=== PATIENT | female | born 1970 | race Caucasian/White ===

== ENCOUNTER 2017-03-18 14:47 | Emergency (ER) | payer SELFPAY ==
[~2017-03-18] VITALS: Ht 149.9 cm; Wt 94.0 kg
[~2017-03-18 14:47] MED LIST: MACR100C PO
[2017-03-18 14:51] VITALS: BP 151/107; PULSE 83; RESP 16; TEMP 98.3; O2SAT 98
[2017-03-18] MEDS ORDERED: OMEP20TA PO (15:08)
[2017-03-18] MEDS ORDERED: IBUPROFEN 600 MG TAB PO ONE (15:45)
[2017-03-18] MEDS ORDERED: ORPHENADRINE INJ 60 MG/2 ML AMP IM ONE (15:45)
[2017-03-18] MEDS ORDERED: IBUP-232 PO (15:49)
--- NOTE | 2017-03-18 15:49 | PD ---
HPI Chief Complaint: Pain: Acute or Chronic Time Seen by Provider: 15:43 Travel History International Travel<30 days: No Contact w/Intl Traveler<30days: No Traveled to known affect area: No History of Present Illness HPI 46-year-old female presents to the emergency room for evaluation of right groin pain that started last night. Patient states pain started as she was pulling herself up off the floor. Localized to the right groin with radiation posteriorly and down the anterior leg. She took ibuprofen without significant relief in symptoms. Pain is worsened with stretching, standing up straight, and range of motion of the right lower extremity. Patient denies paresthesias. Denies chronic medical conditions or daily medications. Denies nausea, vomiting, diarrhea, or difficulty with bowel movements. PFSH Past Medical History Hx Anticoagulant Therapy: No Cancer: Yes ("precancerous cells removed from cervix") Diabetes: No Diminished Hearing: No GERD: Yes Headaches: Yes Medical other: Yes (PRECANCER CELLS ON OVERIES) Tetanus Vaccination: < 5 Years Influenza Vaccination: No ?: Not : 5 Para: 3 Miscarriage: 2 Tubal Ligation: Yes Social History Alcohol Use: No Tobacco Use: No Substance Use: No Allergies-Medications (Allergen,Severity, Reaction): Coded Allergies: No Known Allergies (Unverified , 03/18/17) Reported Meds & Prescriptions Reported Meds & Active Scripts Active Reported Omeprazole 20 Mg Tab 20 Mg PO DAILY Review of Systems Except as stated in HPI: all other systems reviewed are Neg Physical Exam Narrative GENERAL: Well-nourished, morbidly obese female in no acute distress. Afebrile. Ambulatory. SKIN: Focused skin assessment warm/dry. No erythema or ecchymosis. HEAD: Normocephalic. EYES: No scleral icterus. No injection or drainage. NECK: Supple, trachea midline. No JVD or lymphadenopathy. CARDIOVASCULAR: Regular rate and rhythm without murmurs, gallops, or rubs. RESPIRATORY: Breath sounds equal bilaterally. No accessory muscle use. GASTROINTESTINAL: Abdomen soft, non-tender, nondistended. No masses. MUSCULOSKELETAL: 2+ dorsalis pedis pulse in the right. Full range of motion of the right hip. Mild tenderness to palpation of the right anterior groin. Data Data Last Documented VS Vital Signs Date Time Temp Pulse Resp B/P Pulse Ox O2 Delivery O2 Flow Rate FiO2 03/18/17 14:51 98.3 83 16 151/107 98 Orders Ibuprofen (Motrin) (03/18/17 15:45) Orphenadrine Inj (Norflex Inj) (03/18/17 15:45) [facility] Medical Decision Making Medical Screen Exam Complete: Yes Emergency Medical Condition: Yes Medical Record Reviewed: Yes Differential Diagnosis Sprain, hernia, muscle spasm, strain Narrative Course 46-year-old female presents to the emergency room for evaluation of right anterior groin pain that started last night. Pain started after patient pulled herself up off the ground. Physical exam reveals minimal tenderness to palpation of the right groin. Right lower extremity is neurovascularly intact. Full range of motion. No masses or hernias appreciated. This is groin strain. Patient given Norflex in the emergency room and discharged with prescription for ibuprofen. Told to follow-up with a PCP or return for worsening symptoms. She understands and agrees to plan. Diagnosis Primary Impression: Strain of right inguinal muscle Qualified Code: S39.013A - Strain of right inguinal muscle, initial encounter Referrals: Primary Care Physician Patient Instructions: General Instructions, Groin Strain (ED) Departure Forms: Tests/Procedures, Work Release Special Instructions: Light duty until 03/20/2017 Additional Instructions: Rest and drink plenty of fluids. Take ibuprofen with food as directed, as needed for pain. Apply ice to the affected area for 20 minutes at a time, as needed for pain and swelling. Follow-up with a primary care physician. Return to the emergency room for worsening symptoms. Med/Other Pt SpecificInfo: Prescription(s) given Disposition: 01 DISCHARGE HOME Condition: Stable Mehnaz Rahman Mar 18, 2017 15:49
== END 2017-03-18 16:03 | disposition home or self-care (01) ==
LOC: PHEFT 14:47
DX: S39.013A Strain of muscle, fascia and tendon of pelvis, initial encounter (principal); X50.9XXA Other and unspecified overexertion or strenuous movements or postures, initial encounter
CPT/HCPCS: 96372; 99284; J2360

== ENCOUNTER 2017-09-18 10:17 | Emergency (ER) | payer SELFPAY ==
[~2017-09-18] VITALS: Ht 149.9 cm; Wt 94.5 kg
[~2017-09-18 10:17] MED LIST changes: +IBUP-232 PO; -MACR100C PO; +OMEP20TA93 PO
[2017-09-18 10:34] VITALS: BP 145/90; PULSE 72; RESP 16; TEMP 98.6; O2SAT 99
[2017-09-18] MEDS ORDERED: MULT1TAB46 (10:45)
[2017-09-18] MEDS ORDERED: CEPH-460 PO (11:11)
--- NOTE | 2017-09-18 11:12 | PD ---
HPI Chief Complaint: Skin Problem Time Seen by Provider: 11:07 Travel History International Travel<30 days: No Contact w/Intl Traveler<30days: No Traveled to known affect area: No History of Present Illness HPI 47y female presents to emergency department complaining of a inflamed skin tag mole on the right axilla for less than 1 week. Patient states that she's had this contact her approximately 35 years and this is the first time that she has had difficulty or pain with it. She states that she has been rubbing the area more than normal and this is the likely cause for pain. States that she has developed a "bubble" under the skin and is tender. Denies drainage. Denies lip no enlargement or pain. Denies fevers or chills. Denies chronic medical issues except for GERD for which she uses [id number] medication PFSH Past Medical History Hx Anticoagulant Therapy: No Cancer: Yes ("precancerous cells removed from cervix") Diabetes: No Diminished Hearing: No GERD: Yes Headaches: Yes Influenza Vaccination: No ?: Not LMP: 09/09/17 : 5 Para: 3 Miscarriage: 2 Tubal Ligation: Yes Social History Alcohol Use: Yes (SOC) Tobacco Use: No Substance Use: No Allergies-Medications (Allergen,Severity, Reaction): Coded Allergies: No Known Allergies (Unverified Adverse Reaction, Unknown, 09/18/17) Reported Meds & Prescriptions Reported Meds & Active Scripts Active Reported Multi Vitamin Daily (Multiple Vitamin) 1 Tab Tab Omeprazole 20 Mg Tab 20 Mg PO DAILY Review of Systems Except as stated in HPI: all other systems reviewed are Neg Physical Exam Narrative GENERAL: Well-nourished, well-developed patient. SKIN: Focused skin assessment warm/dry. Right axilla- 5 mm x 2 mm pedunculated flesh-colored lesion with mild erythema at the base. Edema versus fluctuance just under the lesion. Mild tender to palpation. Nonfriable. Mostly uniform in color HEAD: Normocephalic. EYES: No scleral icterus. No injection or drainage. NECK: Supple, trachea midline. No JVD or lymphadenopathy. CARDIOVASCULAR: Regular rate and rhythm without murmurs, gallops, or rubs. RESPIRATORY: Breath sounds equal bilaterally. No accessory muscle use. MUSCULOSKELETAL: No cyanosis, or edema. BACK: Nontender without obvious deformity. No CVA tenderness. Data Data Last Documented VS Vital Signs Date Time Temp Pulse Resp B/P (MAP) Pulse Ox O2 Delivery O2 Flow Rate FiO2 09/18/17 10:34 98.6 72 16 145/90 (108) 99 MDM Medical Decision Making Medical Screen Exam Complete: Yes Emergency Medical Condition: Yes Differential Diagnosis Inflame skin tag, cellulitis, erysipelas Narrative Course 47y female presents to emergency department complaining of a inflamed skin tag mole on the right axilla for less than 1 week. Patient states that she's had this contact her approximately 35 years and this is the first time that she has had difficulty or pain with it. She states that she has been rubbing the area more than normal and this is the likely cause for pain. States that she has developed a "bubble" under the skin and is tender. Denies drainage. Denies lip no enlargement or pain. Denies fevers or chills. Denies chronic medical issues except for GERD for which she uses [id number] medication Vital signs stable Physical exam findings consistent with irritation of a skin tag with possible cellulitic component. Patient will be prescribed Keflex. Advised to watch for signs of infection. Follow-up with the binder technician for possible removal. Return to us for worsening or persistent symptoms. Diagnosis Primary Impression: Inflamed acrochordon Referrals: Radiation Oncology Nurse Primary Care Physician Additional Instructions: Follow up with your primary care physician within 2-3 days. If your symptoms persist or worsen, return to the emergency department. Keep area clean and dry. You may bathe as normal. You may use [id number] triple antibiotic ointments for your injury daily. Change dressings daily. If he developed increased redness, swelling, or pain return to the emergency department. Physical medication as prescribed Scripts Cephalexin (Keflex) 500 Mg Capsule 500 MG PO TID for Infection for 7 Days, CAP 0 Refills Prov: Stephanie Foss 09/18/17 Disposition: 01 DISCHARGE HOME Condition: Stable Stephanie Foss Sep 18, 2017 11:12
== END 2017-09-18 11:22 | disposition home or self-care (01) ==
LOC: PHEFT 10:17
DX: D22.5 Melanocytic nevi of trunk (principal); K21.9 Gastro-esophageal reflux disease without esophagitis; Z79.899 Other long term (current) drug therapy
CPT/HCPCS: 99283

== ENCOUNTER 2017-09-21 10:28 | Emergency (ER) | payer SELFPAY ==
[~2017-09-21] VITALS: Ht 149.9 cm; Wt 94.3 kg
[~2017-09-21 10:28] MED LIST changes: +CEPH-460 PO; -IBUP-232 PO; +MULT1TAB46
[2017-09-21 10:29] VITALS: BP 185/111; PULSE 79; RESP 16; TEMP 98.2; O2SAT 98
[2017-09-21] MEDS ORDERED: PRED20 PO (11:19)
[2017-09-21] MEDS ORDERED: MUPI2%T TOPICAL (11:19)
--- NOTE | 2017-09-21 11:20 | PD ---
HPI Chief Complaint: Skin Problem Time Seen by Provider: 11:07 Travel History International Travel<30 days: No Contact w/Intl Traveler<30days: No Traveled to known affect area: No History of Present Illness HPI 47-year-old female here for evaluation of pruritic rash to her chest and left upper extremity 12 hours. Patient was recently put on Keflex for possible minor skin infection to her right axilla region. She denies oral swelling, difficulty swallowing, wheezing. She has not taken any Benadryl. Symptom severity is mild. No aggravating or alleviating factors. Last dose of Keflex was last night PFSH Past Medical History Hx Anticoagulant Therapy: No Cancer: Yes ("precancerous cells removed from cervix") Diabetes: No Diminished Hearing: No GERD: Yes Headaches: Yes Tetanus Vaccination: > 5 Years Influenza Vaccination: No ?: Not : 5 Para: 3 Miscarriage: 2 Tubal Ligation: Yes Social History Alcohol Use: Yes (SOC) Tobacco Use: No Substance Use: No Allergies-Medications (Allergen,Severity, Reaction): Coded Allergies: cephalexin (Verified Allergy, Severe, Rash, 09/21/17) No Known Allergies (Unverified Adverse Reaction, Unknown, 09/21/17) Reported Meds & Prescriptions Reported Meds & Active Scripts Active Keflex (Cephalexin) 500 Mg Capsule 500 Mg PO TID 7 Days Reported Multi Vitamin Daily (Multiple Vitamin) 1 Tab Tab Omeprazole 20 Mg Tab 20 Mg PO DAILY Review of Systems Except as stated in HPI: all other systems reviewed are Neg General / Constitutional: No: Fever Skin: Positive Rash, Positive Itching Physical Exam Narrative GENERAL: Alert well-appearing female. No distress. SKIN: Warm and dry. Faint erythematous rash to chest and left upper extremity. There is evidence of excoriation from scratching. HEAD: Normocephalic. EYES: No injection or drainage. MOUTH: No oral swelling. Uvula is midline. Airway is patent. NECK: Supple, trachea midline. No JVD or lymphadenopathy. CARDIOVASCULAR: Regular rate and rhythm without murmurs, gallops, or rubs. RESPIRATORY: Breath sounds equal bilaterally. No accessory muscle use. No wheezing. MUSCULOSKELETAL: Right axilla: Small skin tag without evidence of infection. Patient reports the area is much improved from prior visit. Data Data Last Documented VS Vital Signs Date Time Temp Pulse Resp B/P (MAP) Pulse Ox O2 Delivery O2 Flow Rate FiO2 09/21/17 10:29 98.2 79 16 185/111 (135) 98 MDM Medical Decision Making Medical Screen Exam Complete: Yes Emergency Medical Condition: Yes Differential Diagnosis Allergic reaction to Keflex, unspecified rash, other Narrative Course 47-year-old female here with itching and faint rash to chest and left upper extremity. New medication is Keflex. The rash is questionable, it does not appear typical of an allergic reaction. Patient will be taken off the Keflex. Short dose of steroids. Instructed to take Benadryl. Bactroban ointment for right axillary minor skin infection. Diagnosis Primary Impression: Rash and nonspecific skin eruption Referrals: Primary Care Physician Additional Instructions: Do not take the Keflex. Take [id number] Benadryl 25 mg every 6 hours for itching. Take steroids as prescribed. Use the Bactroban ointment over the skin tag. Scripts Mupirocin Topical (Bactroban Topical) 22 Gm Cream 1 APPLIC TOPICAL BID for Mgmt Bacterial Infection, #1 TUBE 0 Refills Prov: Irene Quiros 09/21/17 Prednisone (Prednisone) 20 Mg Tab 40 MG PO DAILY, #8 TAB 0 Refills Take 40 mg (2 tablets) daily for 5 days Prov: Irene Quiros 09/21/17 Disposition: 01 DISCHARGE HOME Condition: Stable Irene Quiros Sep 21, 2017 11:20
== END 2017-09-21 11:24 | disposition home or self-care (01) ==
LOC: PHEFT 10:28
DX: R21 Rash and other nonspecific skin eruption (principal); K21.9 Gastro-esophageal reflux disease without esophagitis
CPT/HCPCS: 99284